=== PATIENT | female | born 1965 | race African-American/Black ===

== ENCOUNTER → 2017-12-19 | Outpatient (CLI) | payer OTHER ==
[~2017-12-19] VITALS: Ht 170.2 cm; Wt 114.5 kg
[~2017-12-19] MED LIST: AMITRIPTYLINE H50 M2 PO; DIAZEPAM 10 MG10 M2 PO; FLEXERIL PO; FOLIC ACID1 MG PO; METHOTREXA25 MG/1 M4 IV PUSH; MOBIC15 MG PO; NEURONTIN 300300 M1 PO; TIMOLOL GL0.5 %/5 M1 OPHTHALMIC; TRAMADOL 50 MG50 MG PO; XALATAN2.5 ML OPHTHALMIC
--- NOTE | ~2017-12-19 | HPC ---
[facility] [place] [place] [address] PAIN MANAGEMENT CONSULTATION Name: VICTOR MANUEL RAMOS Room #: REG ALEXANDRA Cortés.#: [id number] Admission: 12/19/17 Attend Phys: Edwige King MD Discharge: Date of : 65 Report #: [id number] THIS REPORT FOR: //name// CC: Jackie King DATE OF SERVICE: 12/19/2017 CHIEF COMPLAINT: Low back pain and pain down in the left leg. HISTORY OF PRESENT ILLNESS: The patient is a 52-year-old female who has been referred to the pain clinic for evaluation. The patient has been experiencing pain and discomfort since about 12/2016. The patient has been experiencing pain and discomfort, which she describes as burning, which is radiating down into her leg and knee. Pain is involving the left leg. She notes that it is very sensitive to stretching, bending and other activities of daily living. Prolonged standing exacerbates it. She is not sure of anything that makes it significantly better. She described as constant, burning, shooting, intermittent, throbbing, tender, and rates it as an 8/10. She does work and sits at her job. Notes that the pain can become quite problematic with prolonged sitting and makes her job more difficult. She has not had back surgeries. Denies any significant trauma. She denies any bowel or bladder dysfunction. She has tried [id number] nonsteroidal anti-inflammatory medication without significant improvement. ALLERGIES: CONTRAST DYE, ASPIRIN. MEDICATIONS: Folic acid 1 mg daily, Elavil 50 mg at bedtime, methotrexate 50 mg once every week. Mobic 15 mg daily, diazepam 10 mg daily, eye drops daily Xalatan 0.005%, gabapentin 300 mg t.i.d., tramadol 50 mg q.4 hours p.r.n., Flexeril 10 mg p.o. t.i.d. for spasms. Timolol 0.5% ophthalmic daily. PAST MEDICAL HISTORY: Joint disease/arthritis, hayfever, arthritis, anxiety. PAST SURGICAL HISTORY: Ankle surgery 2005, right knee repair 2014. 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 She has been off work for 2 weeks. This is related to the pain in her leg. Occasional alcohol use. REVIEW OF SYSTEMS: Questionnaire in the chart indicates weight changes, wears glasses, visual problems, earaches, chronic sinus problems, numbness and tingling sensation in the lower extremity with pain and discomfort radiating down into the left buttocks [place] [address] PAIN MANAGEMENT CONSULTATION Name: VICTOR MANUEL RAMOS [facility] [id number] Admission: 12/19/17 Attend Phys: Edwige King MD Discharge: Date of : 65 Report #: [id number] LABORATORY DATA: The patient's MRI of the lumbar spine was reviewed with her on her TV screen. PAIN CLINIC ASSESSMENT: 1. History of osteoarthritis/rheumatoid arthritis. The patient is being treated with methotrexate for arthritic changes. 2. Pain intensity 4-5/10. 3. Fall risk. The patient does not need help walking at this juncture. She has fallen in the last 3 months. 4. The patient is not on any blood thinners. 5. The patient is not being treated for hypertension. 6. The patient is not on opioid therapy. We will sign contract. 7. Risk assessment tool for opioids 0/3, which is low risk. 8. Functional assessment tool 42/70 in regards to general activity, mood, walking, work, relationships with others, sleep, enjoyment of life, recreational drugs use greater than 3 months ago. 9. Tobacco use. The patient has smoked cigarettes for 25 years. Denies use frequent use of alcohol. PHYSICAL EXAMINATION: VITAL SIGNS: Height 5 feet 7 inches. Weight 253 pounds. BMI is 39.5. Blood pressure 130/85, pulse 81, respiratory rate 16, room air saturation is 95%. GENERAL: The patient is a well-developed, well-nourished female. Appearance, appears her stated age. Orientation: The patient is alert and oriented x 3. Affect the patient's affect appears appropriate. HEENT: The patient is normocephalic, atraumatic with extraocular eye muscles intact. No significant nasal congestion at this juncture. Hearing is within normal limits. NECK: Without adenopathy or masses. No bruits. Upper extremities are judged to be 5/5 in muscle strength. Deep tendon reflexes are +1 at the biceps bilaterally. Difficult to appreciate at the triceps and brachioradialis. [employer] Operations [employer] strength is 5/5. HEART: Regular with rate, normal S1, S2. ABDOMEN: Nontender, without organomegaly. MUSCULOSKELETAL: Alignment appears normal without significant scoliosis, kyphosis or lordosis. The patient's gait is slow and antalgic with a lean with favoring the left leg. Left and right lateral bending, left and right lateral rotation cause some increased discomfort in the left lower leg. Forward bending to about 45 degrees causes increased back pain with pain radiating down to the left leg. Lumbar extension was limited. Muscle strength in the major muscle groups in the lower extremity is judged to be 5/5. The patient is able to stand on her heels and toes. Notes some increased pain and discomfort radiating down in the L5-S1 dermatomal distribution to the level of the knee on the left side. IMPRESSION: 1. Lumbar radiculopathy with pain radiating down into the L4-L5 distribution of [facility] [address] [place] [address] PAIN MANAGEMENT CONSULTATION Name: VICTOR MANUEL RAMOS Room #: REG ALEXANDRA RiversTita#: [id number] Admission: 12/19/17 Attend Phys: Edwige King MD Discharge: Date of : 65 Report #: [id number] her left leg and some discomfort in the back, L5-S1. 2. Tobacco use. 3. Eye complaint with use of eyedrops/glaucoma. 4. Rheumatoid arthritis. 5. History of meralgia paresthetica. RECOMMENDATIONS: We discussed treatment options with the patient. Risks and benefits of an epidural steroid injection were discussed. Possible complications of the procedure, which could include but are not limited to infection, increased muscle soreness headache, bleeding, nerve damage were discussed. The patient would like to proceed. At this juncture, she has to go to work. She does not have enough time to undergo the procedure today. She will return to the pain clinic in the near future, at which time she will then undergo an epidural steroid injection. <ELECTRONICALLY SIGNED> By: Edwige King MD 01/07/18 [id number] Edwige King MD /RENITA
[2017-12-19 12:57] VITALS: BP 130/85
== END ==
LOC: PAIN 12-17 06:51
DX: M54.16 Radiculopathy, lumbar region (principal); M06.9 Rheumatoid arthritis, unspecified; M54.17 Radiculopathy, lumbosacral region; F17.200 Nicotine dependence, unspecified, uncomplicated; H40.9 Unspecified glaucoma; F41.9 Anxiety disorder, unspecified; Z96.651 Presence of right artificial knee joint; Z91.041 Radiographic dye allergy status; Z88.6 Allergy status to analgesic agent

== ENCOUNTER → 2018-09-04 | Outpatient (CLI) | payer OTHER ==
[~2018-09-04] VITALS: Ht 170.2 cm; Wt 91.1 kg
--- NOTE | ~2018-09-04 | HPC ---
[facility] [place] [address] PAIN MANAGEMENT CONSULTATION Name: VICTOR MANUEL RAMOS Room #: REG ALEXANDRA Moo.#: [id number] Admission: 09/04/18 Attend Phys: Edwige King MD Discharge: Date of : 65 Report #: [id number] THIS REPORT FOR: //name// CC: Jackie King DATE OF SERVICE: 09/04/2018 CHIEF COMPLAINT: Low back pain and left leg pain. HISTORY: The patient is a 53-year-old female who has been seen in the pain clinic in the past. She has returned today indicating that she is having pain that is radiating down in her low back, into the left buttocks, and down into her left leg involving the ankle. Also, notes some discomfort in her knee. She rates it as a 3/10. Pain is worse when she is walking, standing, as well as with activities of daily living. Prolonged sitting can be problematic. She has difficulty climbing stairs. Medication, repositioning, and lying down can be helpful. Denies any new bowel or bladder dysfunction. Notes that over the last few weeks, the pain has grown more problematic. Has continued to use meloxicam and gabapentin. She also used tramadol and Flexeril to help with the muscle spasms. ALLERGIES: CONTRAST DYE, ASPIRIN. CURRENT MEDICATIONS: Folic acid 1 mg, amitriptyline 50 mg at bedtime, methotrexate 50 mg weekly, Meloxicam 15 mg, diazepam 10 mg q. 8 hours p.r.n., Xalatan 0.005% ophthalmic drops, gabapentin 300 mg in the morning, 600 mg midday, and 900 mg at night, tramadol 50 mg q.4 hours p.r.n., Flexeril 10 mg t.i.d. p.r.n. spasms, and Timolol 0.5% ophthalmic. PAIN CLINIC ASSESSMENT AND PQRS: 1. History of osteoarthritis and rheumatoid arthritis. The patient is being treated for rheumatoid arthritis. 2. Height 5 feet 7 inches, weight 200 pounds, BMI is 31.4: 3. Vital signs: Blood pressure 125/77, pulse 87, respiratory rate 16, and room air saturation is 100%. 4. Pain intensity 01/03. 5. Fall risk. The patient has not fallen in the last 3 months. 6. Blood thinner. The patient is not on a blood thinning medication. 7. Hypertension. The patient has not been treated for hypertension. 8. Opioids. The patient is not on an opioid medication, but is taking tramadol. 9. Risk assessment tool, low risk 0/3 for opioid use. 10. Functional assessment tool. 11. Recreational drug use. The patient denies use of recreational drugs. 12. Tobacco: The patient has smoked for the past 30 years. Smokes 1/[address] [address] PAIN MANAGEMENT CONSULTATION Name: VICTOR MANUEL RAMOS Room #: REG [facility].#: [id number] Admission: 09/04/18 Attend Phys: Edwige Kign MD Discharge: Date of : 65 Report #: [id number] per day. We have discussed the benefits of smoking cessation with the patient. 13. Alcohol: The patient denies frequent use of alcoholic beverages. PHYSICAL EXAMINATION: GENERAL: The patient is a well-developed, well-nourished black female. She appears her stated age. She is alert and oriented x 3. Affect is appropriate. NECK: Without adenopathy or JVD. HEART: Regular rate. S1, S2. ABDOMEN: Protuberant. Bowel sounds present. MUSCULOSKELETAL: Upper extremity muscle strength is judged to be 5/5 for the major muscle groups in the upper extremity. Without significant scoliosis, kyphosis, or lordosis. The patient walks with a slow antalgic gait favoring her left leg. She complained of pain on the left side. Has perception of a burning discomfort down into her leg in the L4-L5 distribution. Use her hands go from a sitting to a standing position. Muscle strength on the right, judged to be 5-/5, left side 5-/5. The patient states that she has lost about 40-50 pounds. She has undergone gastric surgery. IMPRESSION: 1. Lumbar radicular pain with pain radiating down the L4-L5 distribution on the left side with numbness, weakness, and burning sensation. 2. Tobacco use. 3. Eye complaints with use of eyedrops secondary to glaucoma. 4. Rheumatoid arthritis with arthritic changes involving her hands. 5. History of meralgia paresthetica. 6. Recent gastric bypass with loss of about 40-50 pounds. RECOMMENDATIONS: We discussed treatment options with the patient. Risks and benefits of an epidural steroid injection were discussed. Possible complications were reviewed. The patient feels that an epidural steroid injection would be beneficial. She is experiencing numbness and tingling down the L4-L5 distribution. She will return to the pain clinic after precertification at which time she will then undergo an epidural steroid injection to help with the pain that she is experiencing in the L4-L5 distribution. She has continued to take meloxicam. We explained to the patient that nonsteroidal anti-inflammatory medications could be problematic given that the patient has had a gastric bypass. She should monitor her GI status. States that she has continued to stretch and do activities to help with the low back pain without significant improvement. We would like to thank you for letting us participate in her care. We hope she continues to improve. By: [id number] Edwige King MD /nt
[2018-09-04 10:57] VITALS: BP 125/77
== END ==
LOC: PAIN 06:51
DX: M54.5 Low back pain (principal); M79.605 Pain in left leg; M25.552 Pain in left hip; Z79.899 Other long term (current) drug therapy